=== PATIENT | male | born 1975 | race Caucasian/White ===

== ENCOUNTER 2019-10-10 13:01 | Emergency (ER) | payer SELFPAY ==
[2019-10-10] MEDS ORDERED: METOCLOPRAMIDE HCL INJ/PF 10 MG/2 ML SDV IV ONE (13:16)
[2019-10-10] MEDS ORDERED: NORMAL SALINE 1000 ML 1,000 ML IV ONE (13:16)
[2019-10-10] MEDS ORDERED: PANTOPRAZOLE SODIUM 40 MG TABLET.DR PO ONE (14:14)
[2019-10-10 14:45] LABS: ABSOLUTE LYMPHOCYTES (AUTO) 0.6 10^3/uL (0.5-4.7); ABSOLUTE MONOCYTES (AUTO) 0.4 10^3/uL (0.1-1.4); BASOPHILS % (AUTO) 0.2 % (0-2); EOSINOPHILS % (AUTO) 0.1 % (0-6); HEMATOCRIT 46.4 % (37.9-51.0); HEMOGLOBIN 16.5 g/dL (13.5-17.0); LYMPHOCYTES % (AUTO) 5.8 % (13-45); MEAN CORPUSCULAR HEMOGLOBIN 32.4 pg (27.0-33.4); MEAN CORPUSCULAR HGB CONC 35.5 g/dL (32.0-36.0); MEAN CORPUSCULAR VOLUME 91 fl (80-97); MONOCYTES % (AUTO) 3.9 % (3-13); PLATELET COUNT 233 10^3/uL (150-450); RED BLOOD COUNT 5.09 10^6/uL (4.35-5.55); RED CELL DISTRIBUTION WIDTH 13.2 % (11.5-14.0); TOTAL CELLS COUNTED % (AUTO) 100 %
[2019-10-10 14:52] LABS: APPEARANCE,URINE SLIGHTLY-CLOUDY; BILIRUBIN,URINE NEGATIVE (NEGATIVE); COLOR,URINE YELLOW; GLUCOSE, URINE >=500 mg/dL (NEGATIVE); KETONES,URINE 20 mg/dL (NEGATIVE); LEUKOCYTE ESTERASE,URINE NEGATIVE (NEGATIVE); NITRITE,URINE NEGATIVE (NEGATIVE); PROTEIN,URINE 30 mg/dL (NEGATIVE); URINE SPECIFIC GRAVITY 1.024; UROBILINOGEN,URINE NEGATIVE mg/dL (<2.0)
[2019-10-10 15:01] LABS: ALBUMIN 4.8 g/dL (3.5-5.0); ALKALINE PHOSPHATASE 66 U/L (38-126); ANION GAP 8 (5-19); ASPARTATE AMINO TRANSFERASE 27 U/L (17-59); BILIRUBIN,TOTAL 0.5 mg/dL (0.2-1.3); BLOOD UREA NITROGEN 8 mg/dL (7-20); CARBON DIOXIDE 28 mmol/L (22-30); CHLORIDE 102 mmol/L (98-107); GLUCOSE 181 mg/dL (75-110); POTASSIUM 4.4 mmol/L (3.6-5.0); TOTAL PROTEIN 7.4 g/dL (6.3-8.2)
--- NOTE | 2019-10-10 15:23 | RADIOLOGY REPORT (SQ) ---
EXAM DESCRIPTION: ACUTE ABDOMEN SERIES IMAGES COMPLETED DATE/TIME: 10/10/2019 2:39 pm REASON FOR STUDY: NVD COMPARISON: None. NUMBER OF VIEWS: Three views. TECHNIQUE: Frontal chest, supine abdomen and upright/decubitus abdomen radiographic images acquired. LIMITATIONS: None. FINDINGS: CHEST: Lungs clear of infiltrates. FREE AIR: None. No abnormal gas collections. BOWEL GAS PATTERN: Nonobstructive pattern. No dilated loops or air fluid levels. CALCIFICATIONS: No suspicious calcifications. HARDWARE: None in the abdomen. SOFT TISSUES: No gross mass or suggestion of organomegaly. BONES: No acute fracture. No worrisome bone lesions. OTHER: No other significant finding. IMPRESSION: NO RADIOGRAPHIC EVIDENCE FOR ACUTE ABDOMINAL DISEASE. TECHNICAL DOCUMENTATION: JOB ID: [id number] 2010 [employer]- All Rights Reserved Reading location - IP/workstation name: [email or web address]
[2019-10-10 15:59] LABS: VENOUS BLOOD BASE EXCESS 0.3 mmol/L; VENOUS BLOOD HCO3 26.8 mmol/L (20-32); VENOUS BLOOD PCO2 49.8 mmHg (35-63); VENOUS BLOOD PH 7.35 (7.30-7.42)
--- NOTE | 2019-10-10 16:48 | ER Document Report ---
HPI - HPI Patient complains to provider of: Nausea vomiting Time Seen by Provider: 10/10/19 14:00 Onset/Duration: Intermittent - This 44-year-old male presents to the emergency room today stating he has had some nausea vomiting which is been ongoing over the course of 2 weeks worsening he does have a history of esophageal reflux and feels like it is getting worse Quality of pain: Achy Pain Level: 5 Associated Symptoms: None Exacerbated by: Denies - GASTROINTESTINAL Gastrointestinal: REPORTS: Abdominal Pain. DENIES: Black / Bloody Stools Past Medical History - General Information source: Patient - Social History Smoking Status: Current Every Day Smoker Chew tobacco use (# tins/day): No Smoking Education Provided: Yes Frequency of alcohol use: None Drug Abuse: None Family History: None Patient has homicidal ideation: No Past Surgical History: Reports: Hx Abdominal Surgery - hernia Vertical Provider Document - CONSTITUTIONAL Agree With Documented VS: Yes - HEENT HEENT: Atraumatic, Normocephalic, PERRLA - NECK Neck: Normal Inspection - RESPIRATORY Respiratory: Breath Sounds Normal - CARDIOVASCULAR Cardiovascular: Regular Rate, Regular Rhythm - GI/ABDOMEN Gastrointestinal: Abdomen Soft, Abdomen Non-Tender - REPRODUCTIVE Male Genitalia: Normal Inspection - BACK Back: Normal Inspection - MUSCULOSKELETAL/EXTREMETIES Musculoskeletal/Extremeties: MAEW - NEURO Level of Consciousness: Awake, Alert Motor/Sensory: No Motor Deficit - DERM Integumentary: Warm Course - Re-evaluation Re-evalutation: 10/10/19 16:44 Patient feeling better in the department he was advised that he had blood sugar of 186 which is now significantly lower after late liter of fluid. He was advised he should follow-up with his PMD in 3 to 5 days to be evaluated potentially for new onset diabetes He has no nausea no vomiting no abdominal discomfort currently is resting well. - Vital Signs Vital signs: Temp Pulse Resp BP Pulse Ox 98.9 F 86 16 133/98 H 99 10/10/19 14:05 10/10/19 14:05 10/10/19 14:05 10/10/19 14:05 10/10/19 14:05 - Laboratory Result Diagrams: 10/10/19 14:10 10/10/19 14:10 Laboratory results interpreted by me: 10/10/19 10/10/19 10/10/19 14:10 14:10 14:10 Lymph % (Auto) 5.8 L Absolute Neuts (auto) 9.0 H Seg Neutrophils % 90.0 H Glucose 181 H POC Glucose Urine Protein 30 H Urine Glucose (UA) >=500 H Urine Ketones 20 H 10/10/19 15:48 Lymph % (Auto) Absolute Neuts (auto) Seg Neutrophils % Glucose POC Glucose 115 H Urine Protein Urine Glucose (UA) Urine Ketones 10/10/19 16:44 Labs- All tests 24 hr 10/10/19 10/10/19 10/10/19 14:10 14:10 14:10 WBC 10.0 RBC 5.09 Hgb 16.5 Hct 46.4 MCV 91 MCH 32.4 MCHC 35.5 RDW 13.2 Plt Count 233 Lymph % (Auto) 5.8 L Bacon % (Auto) 3.9 Eos % (Auto) 0.1 Baso % (Auto) 0.2 Absolute Neuts (auto) 9.0 H Absolute Lymphs (auto) 0.6 Absolute Monos (auto) 0.4 Absolute Eos (auto) 0.0 Absolute Basos (auto) 0.0 Seg Neutrophils % 90.0 H VBG pH VBG pCO2 VBG HCO3 VBG Base Excess Sodium 138.4 Potassium 4.4 Chloride 102 Carbon Dioxide 28 Anion Gap 8 BUN 8 Creatinine 0.86 Est GFR ( Amer) > 60 Est GFR (MDRD) Non-Af > 60 Glucose 181 H POC Glucose Calcium 10.0 Total Bilirubin 0.5 Direct Bilirubin 0.0 Neonat Total Bilirubin Not Reportable Neonat Direct Bilirubin Not Reportable Neonat Indirect Bili Not Reportable AST 27 ALT 30 Alkaline Phosphatase 66 Troponin I < 0.012 Total Protein 7.4 Albumin 4.8 Lipase 170.4 Urine Color Urine Appearance Urine pH Ur Specific Keldron Urine Protein Urine Glucose (UA) Urine Ketones Urine Blood Urine Nitrite Urine Bilirubin Urine Urobilinogen Ur Leukocyte Esterase Urine WBC (Auto) Urine RBC (Auto) Urine Mucus (Auto) Urine Ascorbic Acid 10/10/19 10/10/19 10/10/19 14:10 15:43 15:48 WBC RBC Hgb Hct MCV MCH MCHC RDW Plt Count Lymph % (Auto) Bacon % (Auto) Eos % (Auto) Baso % (Auto) Absolute Neuts (auto) Absolute Lymphs (auto) Absolute Monos (auto) Absolute Eos (auto) Absolute Basos (auto) Seg Neutrophils % VBG pH 7.35 VBG pCO2 49.8 VBG HCO3 26.8 VBG Base Excess 0.3 Sodium Potassium Chloride Carbon Dioxide Anion Gap BUN Creatinine Est GFR ( Amer) Est GFR (MDRD) Non-Af Glucose POC Glucose 115 H Calcium Total Bilirubin Direct Bilirubin Neonat Total Bilirubin Neonat Direct Bilirubin Neonat Indirect Bili AST ALT Alkaline Phosphatase Troponin I Total Protein Albumin Lipase Urine Color YELLOW Urine Appearance SLIGHTLY-CLOUDY Urine pH 8.0 Ur Specific Keldron 1.024 Urine Protein 30 H Urine Glucose (UA) >=500 H Urine Ketones 20 H Urine Blood NEGATIVE Urine Nitrite NEGATIVE Urine Bilirubin NEGATIVE Urine Urobilinogen NEGATIVE Ur Leukocyte Esterase NEGATIVE Urine WBC (Auto) 2 Urine RBC (Auto) 0 Urine Mucus (Auto) MANY Urine Ascorbic Acid NEGATIVE - Diagnostic Test Radiology results interpreted by me: 10/10/19 16:45 Acute Abdomen Series 10/10/19 13:59 IMPRESSION: NO RADIOGRAPHIC EVIDENCE FOR ACUTE ABDOMINAL DISEASE. Discharge - Discharge Clinical Impression: Elevated blood sugar Gastroesophageal reflux Qualifiers: Esophagitis presence: without esophagitis Qualified Code(s): K21.9 - Gastro-esophageal reflux disease without esophagitis Condition: Fair Disposition: HOME, SELF-CARE Instructions: [facility] ([facility]) Additional Instructions: Must follow-up with PMD in 3 to 4 days for glucose monitoring. Increase fluid intake rest try to refrain from sugary foods. Return to the emergency room for any change worsening condition. Prescriptions: Pantoprazole Sodium [Protonix [address] Tablet] 40 mg PO QAM #30 tablet. [facility] [NO [facility] MD] - Follow up as needed
[2019-10-10 17:12] VITALS: BP 168/98
--- NOTE | 2019-10-11 08:49 | EKG REPORT ---
SEVERITY:- BORDERLINE ECG - SINUS RHYTHM BORDERLINE RIGHT AXIS DEVIATION BORDERLINE T ABNORMALITIES, DIFFUSE LEADS : Confirmed by: Abhijeet Marinelli MD 11-Oct-2019 08:48:26
== END 2019-10-10 17:14 | disposition home or self-care (01) ==
LOC: ER 13:01
DX: R73.9 Hyperglycemia, unspecified (principal); K21.9 Gastro-esophageal reflux disease without esophagitis; R11.2 Nausea with vomiting, unspecified; R10.9 Unspecified abdominal pain; F17.200 Nicotine dependence, unspecified, uncomplicated
CPT/HCPCS: 93005; 99285; 96361; 96374; 36415; 82962; 83690; 85025; 80053; 81001; 84484; 82803; 74022; 93010; J2765; J7030; J3490